=== PATIENT | female | born 1945 | race Caucasian/White ===

== ENCOUNTER 2019-04-09 10:01 | Outpatient (CLI) | payer MEDICARE, OTHER ==
--- NOTE | 2019-04-09 11:07 | ULT ---
ULTRASOUND ABDOMEN: HISTORY: Abdominal pain FINDINGS: The liver demonstrates homogeneous echotexture without focal mass or intrahepatic ductal dilatation. The spleen, kidneys and visualized portions of the pancreas, aorta and IVC are normal. There are mobile shadowing gallstones and sludge in the gallbladder without gallbladder wall thickening or shayla cholecystic fluid. The common duct measures 7 mm in diameter. No free fluid is seen. IMPRESSION: Cholelithiasis.
== END 2019-04-09 10:02 | disposition home or self-care (01) ==
LOC: ULT 10:01
PROVIDERS: ATTEND Nurse Practitioner Family
DX: R10.11 Right upper quadrant pain (principal); I10 Essential (primary) hypertension; Z78.0 Asymptomatic menopausal state; I34.0 Nonrheumatic mitral (valve) insufficiency; K80.20 Calculus of gallbladder without cholecystitis without obstruction; R00.1 Bradycardia, unspecified; I51.7 Cardiomegaly
CPT/HCPCS: 76700; 93306

== ENCOUNTER 2023-12-29 12:49 | Day surgery (SDC) | payer MEDICARE, OTHER ==
[2023-12-29] MEDS ORDERED: Lidocaine 1% PF 5 ML VIAL ONE (13:55)
== END 2023-12-29 16:00 | disposition home or self-care (01) ==
LOC: ULT 12:49
PROVIDERS: ATTEND Otolaryngology Plastic Surgery within the Head & Neck
PROC: 0GBG3ZX Excision of Left Thyroid Gland Lobe, Percutaneous Approach, Diagnostic (ICD-10-PCS; principal; 2023-12-29)
PROC: 0GBH3ZX Excision of Right Thyroid Gland Lobe, Percutaneous Approach, Diagnostic (ICD-10-PCS; 2023-12-29)
DX: E04.1 Nontoxic single thyroid nodule (principal); E04.2 Nontoxic multinodular goiter; J34.2 Deviated nasal septum; J34.3 Hypertrophy of nasal turbinates; K21.00 Gastro-esophageal reflux disease with esophagitis, without bleeding; J30.9 Allergic rhinitis, unspecified; E78.00 Pure hypercholesterolemia, unspecified; I10 Essential (primary) hypertension; K21.9 Gastro-esophageal reflux disease without esophagitis; Z90.49 Acquired absence of other specified parts of digestive tract; Z88.1 Allergy status to other antibiotic agents; Z88.2 Allergy status to sulfonamides; Z79.899 Other long term (current) drug therapy
CPT/HCPCS: 10005; 10006; 88173